=== PATIENT | male | born 1985 | race Caucasian/White ===

== ENCOUNTER 2016-07-18 22:54 | Emergency (ER) | payer OTHER ==
[~2016-07-18] VITALS: Ht 177.8 cm; Wt 74.8 kg
[2016-07-18 23:35] LABS: AMPHETAMINE QUAL UR NONE DETECTED (NEG <=1000)
[2016-07-18 23:39] LABS: CALCIUM 8.5 mg/dL (8.5-10.1); CARBON DIOXIDE 33.8 mmol/L (21-32); CHLORIDE SERUM 102 mmol/L (98-107); CREATININE SERUM 1.1 mg/dL (0.7-1.3); GFR1 > 60 mL/min; GLUCOSE SERUM 158 mg/dL (74-106); SODIUM SERUM 141 mmol/L (136-145)
[2016-07-18 23:43] LABS: ALBUMIN 4.1 g/dL (3.4-5.0); ALKALINE PHOSPHATASE 82 U/L (46-116); ALT/SGPT 25 U/L (16-63); AST/SGOT 18 U/L (15-37); BILIRUBIN TOTAL 0.5 mg/dL (0.20-1.00); TOTAL PROTEIN, SERUM 7.1 g/dL (6.4-8.2)
[2016-07-18 23:50] LABS: BASOPHIL % 0.3 % (0-2); PLATELET COUNT 212 x10^3mcL (130-400); RED CELL DISTRIBUTION WIDTH 12.6 % (11.5-14.5)
[2016-07-19 00:41] VITALS: BP 116/71
== END 2016-07-19 00:41 | disposition home or self-care (01) ==
LOC: ED 22:54 → EDBD 22:54 → ED 07-19 00:41
PROVIDERS: Emergency Medicine
DX: R00.2 Palpitations (principal); F12.929 Cannabis use, unspecified with intoxication, unspecified; F90.9 Attention-deficit hyperactivity disorder, unspecified type
CPT/HCPCS: 80307